=== PATIENT | male | born 1965 | race Caucasian/White ===

== ENCOUNTER 2021-01-21 07:17 | Emergency (ER) | payer BC ==
[2021-01-21] MEDS ORDERED: Lidocaine 2% 20 ml MDV ONE (08:16)
[2021-01-21] MEDS ORDERED: Cephalexin 250 MG CAP ONE (08:37)
== END 2021-01-21 08:59 | disposition home or self-care (01) ==
LOC: BURERS 07:17
DX: L03.011 Cellulitis of right finger (principal)
CPT/HCPCS: 10060